=== PATIENT | male | born 1965 | race Caucasian/White ===

== ENCOUNTER 2017-06-09 16:49 | Emergency (ER) | payer BC ==
[2017-06-09 16:56] VITALS: BP 125/73
--- NOTE | 2017-06-09 17:03 | UC ---
Shoulder Pain HPI - HPI Summary HPI Summary: 52 YEAR OLD FEMALE PRESENTS WITH COMPLAINS OF RIGHT SHOULDER AND LEFT BACK PAIN AFTER LIFTING A HEAVY BOX. - History of Current Complaint Chief Complaint: UCUpperExtremity Stated Complaint: SHOULDER AND BACK INJURY Time Seen by Provider: 06/09/17 16:59 Hx Obtained From: Patient Onset/Duration: Lasting Days Timing: Constant Severity Initially: Moderate Severity Currently: Moderate Location Of Pain: Is Discrete @ - RIGHT SHOULDER AND LEFT UPPER BACK Pain Scale Used: 0-10 Numeric - 6 Character: Sharp Aggravating Factor(s): Movement, Lifting Alleviating Factor(s): Rest - Allergies/Home Medications Allergies/Adverse Reactions: Allergies Allergy/AdvReac Type Severity Reaction Status Date / Time No Known Allergies Allergy Verified 06/09/17 16:56 Home Medications: Home Medications Misc Natural Products [Prostate Health] 1 cap PO 06/09/17 [History] Multiple Vitamins W/ Minerals [Multivitamin Adult] 1 chw PO 06/09/17 [History] [place]-3 Fatty Acids [Fish Oil] 1,000 mg PO 06/09/17 [History] PMH/Surg Hx/FS Hx/Imm Hx Previously Healthy: Yes - Surgical History Surgical History: Yes Surgery Procedure, Year, and Place: hernia repair - Family History Known Family History: Positive: None - Social History Alcohol Use: Weekly Substance Use Type: None Smoking Status (MU): Never Smoked Tobacco Review of Systems Constitutional: Negative Skin: Negative Eyes: Negative ENT: Negative Respiratory: Negative Cardiovascular: Negative Gastrointestinal: Negative Genitourinary: Negative Motor: Negative Neurovascular: Negative Musculoskeletal: Other: - RIGHT SHOULDER LEFT UPPER BACK PAIN Neurological: Negative Psychological: Negative All Other Systems Reviewed And Are Negative: Yes Physical Exam Triage Information Reviewed: Yes Vital Signs: Initial Vital Signs Temp 36.5 C 06/09/17 16:52 Pulse 75 06/09/17 16:52 Resp 18 06/09/17 16:52 BP 125/73 06/09/17 16:52 Pulse Ox 100 06/09/17 16:52 Eye Exam: Normal ENT Exam: Normal Dental Exam: Normal Neck exam: Normal Neck: Positive: 1 Respiratory Exam: Normal Cardiovascular Exam: Normal Abdominal Exam: Normal Musculoskeletal: Positive: Other: - RIGHT SHOULDER PAIN LEFT UPPER BACK PAIN Neurological Exam: Normal Psychological Exam: Normal Skin Exam: Normal Shoulder Course/Dx - Differential Dx/Diagnosis Provider Diagnoses: RIGHT SHOULDER BICEP TENDONITIS. LEFT RHOMBOID STRAIN Discharge - Discharge Plan Condition: Stable Disposition: HOME Prescriptions: Meloxicam [Mobic] 7.5 mg PO BID #30 tab Methocarbamol TAB* [Robaxin 500 MG TAB*] 500 mg PO TID PRN #30 tab PRN Reason: Spasms - Back Patient Education Materials: Shoulder Sprain (ED), Muscle Spasm (ED) Referrals: No Primary Care Phys,NOPCP [Primary Care Provider] -
== END 2017-06-09 17:15 | disposition home or self-care (01) ==
LOC: UCEAST 16:49
DX: S46.812A Strain of other muscles, fascia and tendons at shoulder and upper arm level, left arm, initial encounter (principal); M75.91 Shoulder lesion, unspecified, right shoulder; X50.0XXA Overexertion from strenuous movement or load, initial encounter; Y92.9 Unspecified place or not applicable
CPT/HCPCS: 99202; G0463